=== PATIENT | female | born 1975 | race Caucasian/White ===

== ENCOUNTER 2021-11-04 13:31 | Emergency (ER) | payer SELFPAY ==
[2021-11-04 16:03] VITALS: BP 141/91
[2021-11-04] MEDS ORDERED: dexAMETHasone 20 MG/5 ML VIAL IM ONE (17:19)
[2021-11-04] MEDS ORDERED: diphenhydrAMINE 50 MG/ML VIAL IM ONE (17:19)
--- NOTE | 2021-11-04 17:25 | Emergency Department Report ---
ED Rash HPI - HPI Chief Complaint: Skin Rash Stated Complaint: FACIAL SWELLING/RASH Rash Symptoms: Yes Itching, No Facial Swelling, No Tongue/Oral Swelling, No Breathing Difficulties, No Choking Sensation, No Wheezing/Dyspnea, No Peeling, No Blistering, No Fever, No Lightheaded, No Malaise, No Myalgias Severity: moderate Other History: 46-year-old female presents to the ED with rash noted to her face ,bilateral arms and abdominal area x1 day. Patient stated on yesterday she was outside [place] and last night she noted the rash appeared. Patient is complaining of pruritus. Taking Benadryl [id number] with mild relief. Patient denies any prior medical history. She is alert and oriented x3. No acute distress noted. No ill appearance noted. ED Review of Systems ROS: Stated complaint: FACIAL SWELLING/RASH Other details as noted in HPI Constitutional: denies: chills, fever Eyes: denies: eye pain, eye discharge, vision change ENT: denies: ear pain, throat pain Respiratory: denies: cough, shortness of breath, wheezing Cardiovascular: denies: chest pain, palpitations Endocrine: no symptoms reported Gastrointestinal: denies: abdominal pain, nausea, diarrhea Genitourinary: denies: urgency, dysuria, discharge Musculoskeletal: denies: back pain, joint swelling, arthralgia Skin: rash, pruritus. denies: lesions Neurological: denies: headache, weakness, paresthesias Psychiatric: denies: anxiety, depression Hematological/Lymphatic: denies: easy bleeding, easy bruising ED Past Medical Hx - Past Medical History Previous Medical History?: No - Surgical History Past Surgical History?: Yes Hx Appendectomy: Yes - Medications Home Medications: Home Medications Medication Instructions Recorded Confirmed Last Taken Type Famotidine [Pepcid] 40 mg PO DAILY 3 Days #3 tab 11/04/21 Unknown Rx diphenhydrAMINE [Benadryl CAP] 25 mg PO Q6HR PRN 15 Days #30 11/04/21 Unknown Rx capsule predniSONE [Deltasone] 50 mg PO QDAY 5 Days #5 tab 11/04/21 Unknown Rx Rash Exam - Exam General: Vital signs noted. No distress. Alert and acting appropriately. ED Course Vital Signs 11/04/21 16:03 Temperature 98.1 F Pulse Rate 81 Respiratory 20 Rate Blood Pressure 141/91 [Right] O2 Sat by Pulse 100 Oximetry ED Medical Decision Making - Medical Decision Making 46-year-old female presents to the ED with rash noted to her face ,bilateral arms and abdominal area x1 day. Patient stated on yesterday she was outside [place] and last night she noted the rash appeared. Patient is complaining of pruritus. Taking Benadryl [id number] with mild relief. Patient denies any prior medical history. She is alert and oriented x3. No acute distress noted. No ill appearance noted. Physical examination patient has a urticarial rash noted to her face,bilateral arms and abdominal area. Rechecked the patient is resting quietly quietly and comfortable and feeling better. I discussed the results of diagnostic study, my clinical impression and the plan for further treatment with the patient. Patient agrees with plan and discharge at this present time. All question addressed. I have given the patient instruction regarding a diagnosis ,expectation ,follow- up and return precaution. I explained to the patient that emergent condition may arise and to return to the ED for new worsen and any new persisting condition. I have explained the importance of following up with the primary care physician or referral physician listed below has instructed. The patient verbalized understanding of discharge instruction. Critical care attestation.: If time is entered above; I have spent that time in minutes in the direct care of this critically ill patient, excluding procedure time. ED Disposition Clinical Impression: Urticarial rash Disposition: 01 HOME / SELF CARE / HOMELESS Is pt being admited?: No Does the pt Need Aspirin: No Condition: Stable Instructions: Hives, Rash, Adult, [id number] Additional Instructions: Take medication as prescribed Return to ED for any worsening symptom Prescriptions: diphenhydrAMINE [Benadryl CAP] 25 mg PO Q6HR PRN 15 Days #30 capsule PRN Reason: Itching predniSONE [Deltasone] 50 mg PO QDAY 5 Days #5 tab Famotidine [Pepcid] 40 mg PO DAILY 3 Days #3 tab Referrals: [facility] [Provider Group] - 3-5 Days Forms: Work/School Release Form(ED) Time of Disposition: 17:34
== END 2021-11-04 17:49 | disposition home or self-care (01) ==
LOC: ED 13:31
DX: L50.9 Urticaria, unspecified (principal)
CPT/HCPCS: 96372; 99282; J1100; J1200